=== PATIENT | male | born 1970 | race American Indian/Alaskan Native ===

== ENCOUNTER 2017-03-23 00:07 | Emergency (ER) | payer SELFPAY ==
[2017-03-23 00:34] VITALS: BP 179/110
[2017-03-23 00:58] LABS: Basophils % (Auto) 0.4 % (0.0-1.8); Eosinophils % (Auto) 5.5 % (0.0-4.3); Hematocrit 43.4 % (35.5-45.6); Hemoglobin 13.7 gm/dl (11.8-15.2); Mean Corpuscular HGB Conc 32 % (32-34); Mean Corpuscular Hemoglobin 27 pg (28-32); Mean Corpuscular Volume 85 fl (84-94); Platelet Count 178 K/mm3 (140-440); Red Blood Count 5.12 M/mm3 (3.65-5.03); Red Cell Distribution Width 14.4 % (13.2-15.2); White Blood Count 6.6 K/mm3 (4.5-11.0)
[2017-03-23 01:16] LABS: Anion Gap 19 mmol/L; BUN/Creatinine Ratio 16.36; Blood Urea Nitrogen 18 mg/dL (9-20); Carbon Dioxide 22 mmol/L (22-30); Glucose 97 mg/dL (75-100); Potassium 3.9 mmol/L (3.6-5.0); Sodium 139 mmol/L (137-145)
[2017-03-23 01:20] LABS: Partial Thromboplastin Time 29.7 Sec. (24.2-36.6)
--- NOTE | 2017-03-23 02:25 | Cat Scan Report ---
FINAL REPORT PROCEDURE: CT HEAD/BRAIN WO CON TECHNIQUE: Computerized tomography of the head was performed without contrast material. HISTORY: neuro deficits \T\lt; 6hrs or sx present upon awakening COMPARISON: 09/03/2016 FINDINGS: Skull and scalp: Normal. Paranasal sinuses: Normal. Ventricles and subarachnoid spaces: Normal. Cerebrum: No evidence of hemorrhage, acute infarction or mass . Cerebellum and brainstem: No evidence of hemorrhage, acute infarction or mass. Vasculature: Normal. Comments: None. IMPRESSION: There is no evidence of an acute intracranial process
--- NOTE | 2017-03-26 19:21 | ED Elopement Review ---
ED Pt Elopement review - Results review Lab results: Laboratory Tests 03/23/17 03/23/17 03/23/17 00:27 00:38 00:38 WBC 6.6 RBC 5.12 H Hgb 13.7 Hct 43.4 MCV 85 MCH 27 L MCHC 32 RDW 14.4 Plt Count 178 Lymph % (Auto) 33.4 Hood % (Auto) 12.8 H Eos % (Auto) 5.5 H Baso % (Auto) 0.4 Lymph # 2.2 Hood # 0.8 Eos # 0.4 Baso # 0.0 Seg Neutrophils % 47.9 Seg Neutrophils # 3.1 PT 13.1 INR 1.00 APTT 29.7 Thrombin Time 16.9 Sodium Potassium Chloride Carbon Dioxide Anion Gap BUN Creatinine Estimated GFR BUN/Creatinine Ratio Glucose POC Glucose 58 L Calcium Troponin T 03/23/17 00:38 WBC RBC Hgb Hct MCV MCH MCHC RDW Plt Count Lymph % (Auto) Hood % (Auto) Eos % (Auto) Baso % (Auto) Lymph # Hood # Eos # Baso # Seg Neutrophils % Seg Neutrophils # PT INR APTT Thrombin Time Sodium 139 Potassium 3.9 Chloride 102.0 Carbon Dioxide 22 Anion Gap 19 BUN 18 Creatinine 1.1 Estimated GFR > 60 BUN/Creatinine Ratio 16.36 Glucose 97 POC Glucose Calcium 9.0 Troponin T < 0.010 - Call Back decision Pt Call Back Decision: Call pt to return to ED GEMINI (patient should return to ER for evaluation of nonspecific neurologic symptoms, and hypoglycemia)
== END 2017-03-23 00:39 | disposition left against medical advice (07) ==
LOC: ED 00:07
DX: H53.8 Other visual disturbances (principal); R20.2 Paresthesia of skin; Z53.21 Procedure and treatment not carried out due to patient leaving prior to being seen by health care provider
CPT/HCPCS: 36415; 70450; 80048; 82962; 84484; 85025; 85610; 85670; 85730; 93005; 93010

== ENCOUNTER 2017-06-19 07:01 | Emergency (ER) | payer SELFPAY ==
[2017-06-19] MEDS ORDERED: MORPHINE IV ONE ×2 (08:07→10:58)
[2017-06-19 08:08] LABS: Basophils % (Auto) 0.5 % (0.0-1.8); Eosinophils % (Auto) 2.2 % (0.0-4.3); Hematocrit 40.5 % (35.5-45.6); Mean Corpuscular HGB Conc 32 % (32-34); Mean Corpuscular Hemoglobin 27 pg (28-32); Mean Corpuscular Volume 84 fl (84-94); Platelet Count 244 K/mm3 (140-440); Red Blood Count 4.85 M/mm3 (3.65-5.03); Red Cell Distribution Width 14.1 % (13.2-15.2)
--- NOTE | 2017-06-19 08:08 | Emergency Department Report ---
HPI - General Chief Complaint: Abdominal Pain Time Seen by Provider: 06/19/17 07:58 - HPI HPI: This is a 47-year-old -Spanish male who presents to the emergency department with a 2 day history of generalized abdominal discomfort. He denies any fever, nausea, vomiting, dysuria but does complaint of some constipation over the past 2 days. He has tried Gas-X thinking that his discomfort is due to gas, as well as some milk of magnesia but he has not had any relief. He has a past medical history of hypertension and was just recently started on hydrochlorothiazide a few days ago but did not take it today prior to presentation. He does not have a primary care physician. No recent travel or sick contacts at home. ED Past Medical Hx - Past Medical History Previous Medical History?: Yes Hx Hypertension: Yes Additional medical history: Chronic back pain, strept throat - Surgical History Past Surgical History?: Yes Additional Surgical History: left wrist - Social History Smoking Status: Current Every Day Smoker Substance Use Type: Alcohol, Marijuana, Prescribed - Medications Home Medications: Home Medications Medication Instructions Recorded Confirmed Last Taken Type Cyclobenzaprine [Flexeril] 10 mg PO TID PRN 06/19/17 06/19/17 06/18/17 History HYDROcodone/APAP 5-325 [[place] 1 each PO Q6HR PRN #8 tablet 06/19/17 Unknown Rx 5/325] Hydrochlorothiazide [HCTZ] 25 mg PO QDAY 06/19/17 06/19/17 06/18/17 History Ibuprofen [Motrin] 800 mg PO Q8HR PRN 06/19/17 06/19/17 06/18/17 History Penicillin Vk [Veetids TAB] 250 mg PO QID 06/19/17 06/19/17 06/18/17 History ED Review of Systems ROS: Stated complaint: ABD PAIN Other details as noted in HPI Comment: All other systems reviewed and negative Constitutional: denies: chills, fever Eyes: denies: eye pain, eye discharge, vision change ENT: denies: ear pain, throat pain Respiratory: denies: cough, shortness of breath, wheezing Cardiovascular: denies: chest pain, palpitations Gastrointestinal: abdominal pain, constipation. denies: nausea, vomiting Genitourinary: denies: urgency, dysuria Musculoskeletal: denies: back pain, joint swelling, arthralgia Skin: denies: rash, lesions Neurological: denies: headache, weakness, paresthesias Physical Exam - Physical Exam Vital Signs: Vital Signs 06/19/17 07:09 Temperature 99.2 F Pulse Rate 76 Respiratory 18 Rate Blood Pressure 179/121 O2 Sat by Pulse 99 Oximetry Physical Exam: GENERAL: The patient is well-developed well-nourished. HENT: Normocephalic. Atraumatic. Patient has moist mucous membranes. EYES: Extraocular motions are intact. Pupils equal reactive to light bilaterally. NECK: Supple. Trachea is midline. CHEST/LUNGS: Clear to auscultation. There is no respiratory distress noted. HEART/CARDIOVASCULAR: Regular. There is no tachycardia. There is no gallop rub or murmur. ABDOMEN: Abdomen is soft. There is some generalized tenderness to palpation of the abdomen. No guarding or rebound tenderness. Patient has normal bowel sounds. There is no abdominal distention. SKIN: Skin is warm and dry. NEURO: The patient is awake, alert, and oriented. The patient is cooperative. The patient has no focal neurologic deficits. The patient has normal speech. MUSCULOSKELETAL: There is no tenderness or deformity. There is no limitation range of motion. There is no evidence of acute injury. ED Course Vital Signs 06/19/17 07:09 Temperature 99.2 F Pulse Rate 76 Respiratory 18 Rate Blood Pressure 179/121 O2 Sat by Pulse 99 Oximetry ED Medical Decision Making - Lab Data Result diagrams: 06/19/17 07:50 06/19/17 07:50 - Radiology Data Radiology results: report reviewed CT of the abdomen and pelvis with IV contrast does not show any acute process. - Medical Decision Making 47-year-old male presents to the emergency department with complaint of abdominal pain. Labs are unremarkable and do not show any etiology of his symptoms. He has some reproducible abdominal pain to palpation but is not a rigid or toxic abdomen. Vital signs stable throughout his ED course but he does present with some hypertension and has not taken his hydrochlorothiazide today. He was given pain medication and antihypertensives. Patient was reevaluated multiple times about multiple hours and has improvement in his pain. On top of that the patient is either sleeping or talking/playing on his phone and does not appear to be in any distress. He appears safe for discharge home at this time and will be given a referral for both primary care and gastroenterology. He will return to the ER with any worsening of symptoms or any acute distress. - Differential Diagnosis gastritis, colitis, diverticulitis, food poisoning Critical Care Time: No Critical care attestation.: If time is entered above; I have spent that time in minutes in the direct care of this critically ill patient, excluding procedure time. ED Disposition Clinical Impression: Abdominal pain Qualifiers: Abdominal location: generalized Qualified Code(s): R10.84 - Generalized abdominal pain Hypertension Qualifiers: Hypertension type: essential hypertension Qualified Code(s): I10 - Essential ( primary) hypertension Disposition: TO HOME OR SELFCARE Is pt being admited?: No Condition: Stable Instructions: Abdominal Pain (ED), Hypertension (ED) Additional Instructions: Please follow up with a primary care physician in the next few days. I have given you a referral for a local reefer engineer, Dr. Georges, in case she would like to follow up with someone regarding nor abdominal pain. Try to stay away from foods that are high in salt and caffeinated products to help with your elevated blood pressure. Take your blood pressure medications. Keep a blood pressure log. Return to the emergency Department with any worsening of your symptoms or any acute distress. You have been prescribed a medication that is sedating and therefore should not be taken prior to driving, working, and responsible for children and in no way should be mixed with alcohol of any quantity. Prescriptions: HYDROcodone/APAP 5-325 [[place] 5/325] 1 each PO Q6HR PRN #8 tablet PRN Reason: Pain Referrals: PRIMARY MD JACINTO [Primary Care Provider] - 3-5 Days THALIA GEORGES MD [Staff Physician] - 3-5 Days SHERYL ALVA MD [Staff Physician] - 3-5 Days [facility] [Outside] - 3-5 Days Time of Disposition: 12:02
[2017-06-19 08:21] LABS: Alanine Aminotransferase 22 units/L (7-56); Albumin 3.9 g/dL (3.9-5); Alkaline Phosphatase 76 units/L (35-129); Anion Gap 17 mmol/L; Blood Urea Nitrogen 11 mg/dL (9-20); Calcium 8.9 mg/dL (8.4-10.2); Carbon Dioxide 24 mmol/L (22-30); Chloride 101.4 mmol/L (98-107); Glucose 98 mg/dL (75-100); Lipase 77 units/L (13-60); Sodium 138 mmol/L (137-145); Total Protein 7.9 g/dL (6.3-8.2)
[2017-06-19] MEDS ORDERED: NACL ONE (08:35)
--- NOTE | 2017-06-19 09:19 | Cat Scan Report ---
CT pelvis with IV contrast: History: Abdominal pain. Findings: Normal lung bases. No pleural pericardial effusion. Normal liver spleen pancreas and gallbladder. Normal adrenals kidney parenchyma and bladder. No free intraperitoneal fluid or air. No evidence of adenopathy. Normal aorta. Normal appendix. No bowel distention. No evidence of diverticulitis. Right inguinal hernia containing fat measuring 4.4 cm in diameter. Left inguinal hernia containing fat measuring 2.1 cm. Impression: Bilateral inguinal hernia. No acute abdominal findings.
[2017-06-19] MEDS ORDERED: APRESOLINE IV ONE (10:41)
[2017-06-19 10:45] LABS: Bilirubin,Urine NEG (Negative); Blood,Urine NEG (Negative); Ketones,Urine NEG (Negative); Leukocyte Esterase,Urine NEG (Negative); Nitrite,Urine NEG (Negative); Protein,Urine <15 mg/dL mg/dL (Negative); Urobilinogen,Urine < 2.0 mg/dL (<2.0)
--- NOTE | 2017-06-19 10:48 | XRay Report ---
ABDOMEN TWO VIEWS: 06/19/17 08:07:00 CLINICAL: Abdominal pain. COMPARISON:None. FINDINGS: Supine upright views demonstrate a relatively gasless abdomen with air in the nondistended right colon and transverse colon. The stomach is nondistended. No distended bowel and no air-fluid levels. No mass or suspicious calcifications. No tubes or lines. No pneumoperitoneum. The bones and soft tissues are unremarkable. IMPRESSION: Negative abdomen.
[2017-06-19 12:06] VITALS: BP 156/93
== END 2017-06-19 12:13 | disposition home or self-care (01) ==
LOC: ED 07:01
DX: R10.84 Generalized abdominal pain (principal); I10 Essential (primary) hypertension; G89.29 Other chronic pain; F17.200 Nicotine dependence, unspecified, uncomplicated; F12.90 Cannabis use, unspecified, uncomplicated
CPT/HCPCS: 36415; 74020; 74177; 80053; 81001; 83690; 85025; 96374; 96375; 96376; 99284; J0360; J2270; Q9967

== ENCOUNTER 2017-10-27 17:26 | Emergency (ER) | payer SELFPAY ==
[2017-10-27 17:36] VITALS: BP 198/121
== END 2017-10-27 21:00 | disposition left against medical advice (07) ==
LOC: ED 17:26
DX: K12.2 Cellulitis and abscess of mouth (principal); Z53.21 Procedure and treatment not carried out due to patient leaving prior to being seen by health care provider

== ENCOUNTER 2017-11-20 14:02 | Emergency (ER) | payer SELFPAY ==
[2017-11-20] MEDS ORDERED: MOTRIN PO ONE (16:56)
--- NOTE | 2017-11-20 17:15 | XRay Report ---
FINAL REPORT PROCEDURE: PA and lateral chest x-ray TECHNIQUE: PA and lateral chest radiographs were obtained. CPT 83643 HISTORY: cough COMPARISON: No prior studies are available for comparison. FINDINGS: Heart: Normal. Mediastinum/Vessels: Normal. Lungs/Pleural space: Normal. Bony thorax: No acute osseous abnormality. Other: IMPRESSION: No evidence of acute cardiac or pulmonary process.
--- NOTE | 2017-11-20 17:50 | Emergency Department Report ---
- General Chief Complaint: Upper Respiratory Infection Stated Complaint: FLU LIKE SYMPTOMS Time Seen by Provider: 11/20/17 16:56 Source: patient Mode of arrival: Ambulatory Limitations: No Limitations - History of Present Illness Initial Comments: This is a 47-year-old male nontoxic, well nourished in appearance, no acute signs of distress presents to the ED with c/o of productive cough, rhinorrhea, nasal congestion, and frontal sinus pain x1 week. Patient describers productive cough as yellow/green mucus production. Patient denies any body aches. Patient denies any recent travels, long car rides, recent hospital stays. Patient denies any calf pain or calf tenderness. Denies any hemoptysis. Patient denies chest pain, shortness of breath, fever, chills, nausea, vomiting, headache, stiff neck, numbness, tingling. Patient denies any allergies. PMH includes HTN. Patient stated that he takes Lisinopril and stated he needs to go back to his primary care doctor to change his dose. MD Complaint: fever, cough, rhinorrhea, nasal congestion, sinus pain -: week(s) (1) Severity: mild Severity scale (0 -10): 8 Quality: aching Consistency: constant Improves With: nothing Worsens With: nothing Associated Symptoms: rhinorrhea, nasal congestion, cough. denies: fever, chills , myalgias, diaphoresis, headache, sore throat, stiff neck, chest pain, shortness of breath, abdominal pain, nausea, vomiting, diarrhea, dysuria, rash, confusion, right sweats, weight loss, epistaxis, hoarseness, ear pain Treatments Prior to Arrival: none - Related Data Home Medications Medication Instructions Recorded Confirmed Last Taken Cyclobenzaprine [Flexeril] 10 mg PO TID PRN 06/19/17 06/19/17 06/18/17 Hydrochlorothiazide [HCTZ] 25 mg PO QDAY 06/19/17 06/19/17 06/18/17 Ibuprofen [Motrin] 800 mg PO Q8HR PRN 06/19/17 06/19/17 06/18/17 Penicillin Vk [Veetids TAB] 250 mg PO QID 06/19/17 06/19/17 06/18/17 Previous Rx's Medication Instructions Recorded Last Taken Type HYDROcodone/APAP 5-325 [[place] 1 each PO Q6HR PRN #8 tablet 06/19/17 Unknown Rx 5/325] Amoxicillin/K Clav Tab [Augmentin 1 tab PO Q12HR #20 tab 11/20/17 Unknown Rx 875 mg] Benzonatate [Tessalon Perle] 100 mg PO Q8H PRN #20 capsule 11/20/17 Unknown Rx Ibuprofen [Motrin] 600 mg PO Q8H PRN #20 tablet 11/20/17 Unknown Rx Allergies Allergy/AdvReac Type Severity Reaction Status Date / Time No Known Allergies Allergy Verified 10/27/17 17:33 ED Review of Systems ROS: Stated complaint: FLU LIKE SYMPTOMS Other details as noted in HPI Constitutional: denies: chills, fever Eyes: denies: eye pain, eye discharge, vision change ENT: denies: ear pain, throat pain Respiratory: cough. denies: shortness of breath, wheezing Cardiovascular: denies: chest pain, palpitations Endocrine: no symptoms reported Gastrointestinal: denies: abdominal pain, nausea, diarrhea Genitourinary: denies: urgency, dysuria Musculoskeletal: denies: back pain, joint swelling, arthralgia Skin: denies: rash, lesions Neurological: denies: headache, weakness, paresthesias Psychiatric: denies: anxiety, depression Hematological/Lymphatic: denies: easy bleeding, easy bruising ED Past Medical Hx - Past Medical History Previous Medical History?: Yes Hx Hypertension: Yes Additional medical history: Chronic back pain, strept throat - Surgical History Past Surgical History?: Yes Additional Surgical History: left wrist - Social History Smoking Status: Current Every Day Smoker Substance Use Type: None - Medications Home Medications: Home Medications Medication Instructions Recorded Confirmed Last Taken Type Cyclobenzaprine [Flexeril] 10 mg PO TID PRN 06/19/17 06/19/17 06/18/17 History HYDROcodone/APAP 5-325 [[place] 1 each PO Q6HR PRN #8 tablet 06/19/17 Unknown Rx 5/325] Hydrochlorothiazide [HCTZ] 25 mg PO QDAY 06/19/17 06/19/17 06/18/17 History Ibuprofen [Motrin] 800 mg PO Q8HR PRN 06/19/17 06/19/17 06/18/17 History Penicillin Vk [Veetids TAB] 250 mg PO QID 06/19/17 06/19/17 06/18/17 History Amoxicillin/K Clav Tab [Augmentin 1 tab PO Q12HR #20 tab 11/20/17 Unknown Rx 875 mg] Benzonatate [Tessalon Perle] 100 mg PO Q8H PRN #20 capsule 11/20/17 Unknown Rx Ibuprofen [Motrin] 600 mg PO Q8H PRN #20 tablet 11/20/17 Unknown Rx ED Physical Exam - General Limitations: No Limitations General appearance: alert, in no apparent distress - Head Head exam: Present: atraumatic, normocephalic, normal inspection - Eye Eye exam: Present: normal appearance, PERRL, EOMI. Absent: scleral icterus, conjunctival injection, nystagmus, periorbital swelling, periorbital tenderness Pupils: Present: normal accommodation - ENT ENT exam: Present: normal exam, normal orophraynx, mucous membranes moist, TM's normal bilaterally, normal external ear exam - Neck Neck exam: Present: normal inspection, full ROM. Absent: tenderness, meningismus, lymphadenopathy, thyromegaly - Respiratory Respiratory exam: Present: normal lung sounds bilaterally. Absent: respiratory distress, wheezes, rales, rhonchi, stridor, chest wall tenderness, accessory muscle use, decreased breath sounds, prolonged expiratory - Cardiovascular Cardiovascular Exam: Present: regular rate, normal rhythm, normal heart sounds. Absent: irregular rhythm, systolic murmur, diastolic murmur, rubs, gallop - GI/Abdominal GI/Abdominal exam: Present: soft, normal bowel sounds. Absent: distended, tenderness, guarding, rebound, rigid, diminished bowel sounds - Rectal Rectal exam: Present: deferred - Extremities Exam Extremities exam: Present: normal inspection, full ROM, normal capillary refill. Absent: tenderness, pedal edema, joint swelling, calf tenderness - Back Exam Back exam: Present: normal inspection, full ROM. Absent: tenderness, CVA tenderness (R), CVA tenderness (L), muscle spasm, paraspinal tenderness, vertebral tenderness, rash noted - Neurological Exam Neurological exam: Present: alert, oriented X3, CN II-XII intact, normal gait, reflexes normal - Psychiatric Psychiatric exam: Present: normal affect, normal mood - Skin Skin exam: Present: warm, dry, intact, normal color. Absent: rash - Other Other exam information: Positive frontal sinus tenderness. ED Course Vital Signs 11/20/17 14:24 Temperature 101 F H Pulse Rate 79 Respiratory 18 Rate Blood Pressure 162/108 O2 Sat by Pulse 96 Oximetry - Reevaluation(s) Reevaluation #1: 11/20/17 17:51 Patient is speaking in full sentences with no signs of distress noted. ED Medical Decision Making - Medical Decision Making This is a 47-year-old male that presents with upper respiratory infection and Sinusitis. Patient is stable and was examined by me. Chest xray has not been obtained due to patient being . Influenza swab negative. Vital signs stable prior to discharge. Patient is afebrile. Normal heart rate. I'll treat patient with augmentin at discharge due to patient stating symptoms are worsening. Patient was rehydrated in the ER and patient tolerated well with no signs of nasuea or vomiting. Patient was instructed to rest and increase hydration and take Tylenol for fever as directed. Patient was instructed Follow- up with a primary care doctor in 3-5 days or if symptoms worsen and continue return to emergency room as soon as possible. At time time of discharge, the patient does not seem toxic or ill in appearance. No acute signs of distress noted. Patient agrees to discharge treatment plan of care. No further questions noted by the patient. Patient was instructed to keep a daily diary of his blood pressure due to elevated. Critical care attestation.: If time is entered above; I have spent that time in minutes in the direct care of this critically ill patient, excluding procedure time. ED Disposition Clinical Impression: Hypertension Upper respiratory infection Qualifiers: URI type: unspecified URI Qualified Code(s): J06.9 - Acute upper respiratory infection, unspecified Sinusitis Qualifiers: Sinusitis location: frontal Chronicity: acute Recurrence: non-recurrent Qualified Code(s): J01.10 - Acute frontal sinusitis, unspecified Disposition: DC-01 TO HOME OR SELFCARE Is pt being admited?: No Does the pt Need Aspirin: No Condition: Stable Instructions: Amoxicillin/Clavulanate Potassium (By mouth), Sinusitis (ED), Upper Respiratory Infection (ED), Hypertension (ED) Additional Instructions: Follow-up with a primary care doctor in 3-5 days or if symptoms worsen and continue return to emergency room as soon as possible. Increase fluids and rest and take Motrin as prescribed during fever episode. Keep a daily diary of your blood pressure log and presented to primary care doctor. Prescriptions: Amoxicillin/K Clav Tab [Augmentin 875 mg] 1 tab PO Q12HR #20 tab Benzonatate [Tessalon Perle] 100 mg PO Q8H PRN #20 capsule PRN Reason: Cough Ibuprofen [Motrin] 600 mg PO Q8H PRN #20 tablet PRN Reason: Fever Referrals: PRIMARY CARE, [Referring] - 3-5 Days LAUREN VAZ MD [Staff Physician] - 3-5 Days [facility] [Outside] - 3-5 Days [facility] [Outside] - 3-5 Days Forms: Work/School Release Form(ED)
[2017-11-20 18:04] VITALS: BP 142/91
== END 2017-11-20 18:17 | disposition home or self-care (01) ==
LOC: ED 14:02
DX: J06.9 Acute upper respiratory infection, unspecified (principal); J32.1 Chronic frontal sinusitis; I10 Essential (primary) hypertension; F17.200 Nicotine dependence, unspecified, uncomplicated
CPT/HCPCS: 71046; 87400; 99283

== ENCOUNTER 2018-06-17 22:01 | Emergency (ER) | payer SELFPAY ==
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
[2018-06-18 00:52] VITALS: BP 177/115
== END 2018-06-18 00:05 | disposition home or self-care (01) ==
LOC: ED 22:01
DX: S16.1XXA Strain of muscle, fascia and tendon at neck level, initial encounter (principal); H10.32 Unspecified acute conjunctivitis, left eye; M25.562 Pain in left knee; I10 Essential (primary) hypertension; V49.49XA Driver injured in collision with other motor vehicles in traffic accident, initial encounter; Y93.89 Activity, other specified; Y92.89 Other specified places as the place of occurrence of the external cause; Y99.8 Other external cause status
CPT/HCPCS: 99282

== ENCOUNTER 2019-03-31 16:08 | Emergency (ER) | payer SELFPAY ==
--- NOTE | 2019-03-31 16:14 | Emergency Department Report ---
Blank Doc - Documentation Documentation: This is a 49-year-old male that presents with n/v/d. Patient denies any abdom inal pain. This initial assessment/diagnostic orders/clinical plan/treatment(s) is/are subject to change based on patient's health status, clinical progression and re- assessment by fellow clinical providers in the ED. Further treatment and workup at subsequent clinical providers discretion. Patient/guardians urged not to elope from the ED as their condition may be serious if not clinically assessed and managed. Initial orders include: 1- Patient sent to [facility] for further evaluation and treatment 2- labs
[2019-03-31] MEDS ORDERED: NACL 0.9% 1000 ML 1,000 ML IV ONE (17:32)
[2019-03-31] MEDS ORDERED: ZOFRAN IV ONE (17:40)
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
[2019-03-31 18:19] LABS: Basophils % (Auto) 0.2 % (0.0-1.8); Eosinophils # (Auto) 0.2 K/mm3 (0.0-0.4); Eosinophils % (Auto) 2.7 % (0.0-4.3); Hemoglobin 13.7 gm/dl (11.8-15.2); Lymphocytes # (Auto) 0.8 K/mm3 (1.2-5.4); Lymphocytes % (Auto) 9.8 % (13.4-35.0); Mean Corpuscular HGB Conc 33 % (32-34); Mean Corpuscular Volume 86 fl (84-94); Monocytes # (Auto) 0.6 K/mm3 (0.0-0.8); Monocytes % (Auto) 7.5 % (0.0-7.3); Platelet Count 248 K/mm3 (140-440); Red Cell Distribution Width 13.7 % (13.2-15.2)
[2019-03-31 18:45] LABS: Alanine Aminotransferase 26 units/L (7-56); Albumin 3.8 g/dL (3.9-5); BUN/Creatinine Ratio 10; Blood Urea Nitrogen 10 mg/dL (9-20); Hemolysis Index 11
[2019-03-31 19:09] LABS: Bilirubin,Urine NEG (Negative); Blood,Urine SM (Negative); Color,Urine Yellow (Yellow); Mucus,Urine FEW /HPF; Protein,Urine <15 mg/dL mg/dL (Negative); Urobilinogen,Urine < 2.0 mg/dL (<2.0); WBC,Urine < 1.0 /HPF (0.0-6.0)
[2019-03-31] MEDS ORDERED: TYLENOL PO ONE (19:35)
[2019-03-31] MEDS ORDERED: TYLENOL ONE (19:39)
== END 2019-03-31 20:10 | disposition home or self-care (01) ==
LOC: ED 16:08
DX: R11.2 Nausea with vomiting, unspecified (principal); R19.7 Diarrhea, unspecified; R10.13 Epigastric pain; I10 Essential (primary) hypertension; G89.29 Other chronic pain; F17.200 Nicotine dependence, unspecified, uncomplicated
CPT/HCPCS: 36415; 80053; 81001; 83690; 85025; 96361; 96374; 99283; J2405; J7030

== ENCOUNTER 2019-08-10 22:46 | Emergency (ER) | payer SELFPAY ==
[2019-08-11] MEDS ORDERED: ROCEPHIN IM ONE (00:35)
[2019-08-11] MEDS ORDERED: XYLOCAINE 1% MPF 5 mL INFILTRATI ONE (00:35)
[2019-08-11] MEDS ORDERED: ZITHROMAX PO ONE (00:35)
[2019-08-11] MEDS ORDERED: NORCO 5/325 PO ONE (00:36)
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
--- NOTE | 2019-08-11 01:14 | XRay Report ---
LEFT HIP, 2 VIEWS 08/11/2019 INDICATION / CLINICAL INFORMATION: left hip pain. COMPARISON: None available. FINDINGS: Intramedullary femoral mary is in place. No evidence of left hip fracture or dislocation. There is asymmetrical degenerative narrowing of the left hip joint and sclerosis of the superior port ion of the left SI joint. Signer Name: Tito Vidal MD Signed: 08/11/2019 1:09 AM Workstation Name: [id number]
--- NOTE | 2019-08-11 01:15 | XRay Report ---
LEFT KNEE, 3 VIEWS 08/11/2019 INDICATION / CLINICAL INFORMATION: left knee pain. COMPARISON: None available. FINDINGS: Intramedullary femoral mary. United distal femoral fracture and evidence of healed fracture of the left fibular shaft. No fracture or dislocation of the knee. Signer Name: Tito Vidal MD Signed: 08/11/2019 1:10 AM Workstation Name: [email or web address]
[2019-08-11 04:36] VITALS: BP 163/117
== END 2019-08-11 02:15 | disposition home or self-care (01) ==
LOC: ED 22:46
DX: M79.605 Pain in left leg (principal); M25.552 Pain in left hip; F17.200 Nicotine dependence, unspecified, uncomplicated; I10 Essential (primary) hypertension; Z98.890 Other specified postprocedural states; Z79.899 Other long term (current) drug therapy; Z91.030 Bee allergy status; Z88.8 Allergy status to other drugs, medicaments and biological substances
CPT/HCPCS: 73502; 73562; 96372; 99283; J0696